=== PATIENT | female | born 1935 | race Caucasian/White ===

== ENCOUNTER 2021-07-19 04:18 | Day surgery (SDC) | payer OTHER, BC ==
[2021-07-15 09:03] VITALS: BMI 26.4
[~2021-07-19 04:18] MED LIST: BUPIVACAINE HCL/PF 0.5% (5MG/ML) 10 ML VIAL IJ ONE
[2021-07-19] MEDS ORDERED: BUPIVACAINE HCL/PF 0.5% (5MG/ML) 10 ML VIAL ONE (11:51)
[2021-07-19] MEDS ORDERED: LIDOCAINE HCL 1%, 10 MG/ML (20ML VIAL) ONE (11:51)
[2021-07-19] MEDS ORDERED: ACETAMINOPHEN INJECTION 100 ML IVPB ONE (12:22)
[2021-07-19] MEDS ORDERED: DEXMEDETOMIDINE HCL 200 MCG/2 ML IVPB ONE (12:22)
[2021-07-19] MEDS ORDERED: ceFAZolin SODIUM 1 GM VIAL IVPB ONE (12:35)
[2021-07-19] MEDS ORDERED: LIDOCAINE HCL 1%, 10 MG/ML (20ML VIAL) INF ONE ×2 (12:38)
[2021-07-19] MEDS ORDERED: BUPIVACAINE HCL/PF 0.5% (5MG/ML) 10 ML VIAL IJ ONE (13:46)
[2021-07-19 15:26] VITALS: TEMP 97.2
[2021-07-19 16:01] VITALS: BP 112/54; PULSE 60
== END 2021-07-19 16:40 | disposition home or self-care (01) ==
LOC: JASU-SURG 04:18
PROVIDERS: ATTEND Podiatrist Foot Surgery
PROC: 0LSW0ZZ Reposition Left Foot Tendon, Open Approach (ICD-10-PCS; 2021-07-19)
PROC: 0HQMXZZ Repair Right Foot Skin, External Approach (ICD-10-PCS; principal; 2021-07-19 13:00)
DX: M21.171 Varus deformity, not elsewhere classified, right ankle (principal)
CPT/HCPCS: 88304-TC; 94760; 97116-GP

== ENCOUNTER 2022-08-07 17:47 | Emergency (ER) | payer OTHER, BC ==
[2022-08-07 17:59] VITALS: BMI 25.0
[2022-08-07] MEDS ORDERED: ACETAMINOPHEN 500 MG TABLET (FP) PO ONE (18:16)
[2022-08-07] MEDS ORDERED: ACETAMINOPHEN 325 MG TABLET (FP) ONE (18:46)
[2022-08-07 19:04] LABS: BASO % 0.5 % (0-2.0); HEMATOCRIT 36.8 % (32.4-45.2); HEMOGLOBIN 12.3 GM/dL (10.7-15.3); LYMPH % 27.2 % (8-40); MCH 29.7 pg (25.7-33.7); MCHC 33.3 g/dl (32.0-36.0); MEAN CELL VOLUME 89.1 fl (80-96); MONO % 16.7 % (3.8-10.2); NEUT % 53.6 % (42.8-82.8); PLATELET COUNT 176 10^3/uL (134-434); RBC 4.14 M/mm3 (3.60-5.2); RDW 15.1 % (11.6-15.6); WHITE BLOOD COUNT 4.2 K/mm3 (4.0-10.0)
[2022-08-07 19:23] LABS: POTASSIUM 4.6 mmol/L (3.5-5.1)
[2022-08-07 19:27] LABS: ALBUMIN 4.2 g/dl (3.4-5.0); BLOOD UREA NITROGEN 28.4 mg/dL (7-18); CALCIUM 9.7 mg/dL (8.5-10.1)
[2022-08-07 19:32] LABS: BILIRUBIN,TOTAL 0.5 mg/dL (0.2-1); TOT PROT 7.8 g/dl (6.4-8.2)
[2022-08-07 19:45] VITALS: BP 158/122; PULSE 78; RESP 15; TEMP 98.1
== END 2022-08-07 20:14 | disposition home or self-care (01) ==
LOC: JER 17:47
DX: R07.89 Other chest pain (principal); R42 Dizziness and giddiness
CPT/HCPCS: 36415; 71045-TC-FY; 80053; 82962; 83036; 84484; 85025; 93005; 93010; 99285-25